=== PATIENT | male | born 2000 | race Two or more races ===

== ENCOUNTER 2022-04-11 18:19 | Emergency (ER) | payer SELFPAY ==
[~2022-04-11] VITALS: Ht 182.9 cm; Wt 79.4 kg
[2022-04-11 18:19] VITALS: BP 111/56
== END 2022-04-12 01:49 | disposition left against medical advice (07) ==
LOC: ER 18:19
DX: M25.511 Pain in right shoulder (principal); R07.89 Other chest pain
CPT/HCPCS: 71045; 93005